=== PATIENT | male | born 1995 | race Caucasian/White ===

== ENCOUNTER 2016-09-16 22:56 | Emergency (ER) | payer BC ==
[~2016-09-16] VITALS: Ht 172.7 cm; Wt 72.7 kg
[2016-09-16 22:56] VITALS: BP 111/67; TEMP 98
[2016-09-17 00:10] VITALS: PULSE 78
== END 2016-09-17 00:10 | disposition home or self-care (01) ==
LOC: COL.ER 22:56
DX: M23.92 Unspecified internal derangement of left knee (principal); X50.1XXA Overexertion from prolonged static or awkward postures, initial encounter; Y93.66 Activity, soccer; Y92.322 Soccer field as the place of occurrence of the external cause
CPT/HCPCS: L1830